=== PATIENT | male | born 1950 | race Caucasian/White ===

== ENCOUNTER 2022-01-20 10:13 | Emergency (ER) | payer MEDICARE, OTHER, SELFPAY ==
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
[2022-01-20 10:15] VITALS: BP 141/105; PULSE 74; RESP 18; TEMP 36.8; O2SAT 98
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
[2022-01-20] MEDS: HYDROcodone/acetaminophen (*CRX) 5-325 MG TABLET 1 TAB PO (11:39)
== END 2022-01-20 11:44 | disposition home or self-care (01) ==
PROVIDERS: Emergency Provider Nurse Practitioner Family
DX: S42.012A Anterior displaced fracture of sternal end of left clavicle, initial encounter for closed fracture (principal); V18.0XXA Pedal cycle driver injured in noncollision transport accident in nontraffic accident, initial encounter
CPT/HCPCS: 73030; 99284; A4565; A9270